=== PATIENT | male | born 1985 | race Caucasian/White ===

== ENCOUNTER 2016-11-04 10:39 | Emergency (ER) | payer MEDICAID, SELFPAY ==
[~2016-11-04] VITALS: Ht 185.4 cm; Wt 77.0 kg
[~2016-11-04 10:39] MED LIST: NOCURR
[2016-11-04 10:45] VITALS: BP 127/75
[2016-11-04] MEDS ORDERED: PENICILLIN V POTASSIUM 500 MG TABLET PO ONE (12:00)
[2016-11-04] MEDS ORDERED: IBUPROFEN 800 MG TABLET PO ONE (12:00)
== END 2016-11-04 12:17 | disposition home or self-care (01) ==
LOC: EMS 10:40
DX: K04.7 Periapical abscess without sinus (principal); F17.210 Nicotine dependence, cigarettes, uncomplicated
CPT/HCPCS: 99283